=== PATIENT | female | born 1995 | race Caucasian/White ===

== ENCOUNTER 2018-01-09 15:20 | Emergency (ER) | payer OTHER, MEDICAID ==
[~2018-01-09] VITALS: Ht 175.3 cm; Wt 63.5 kg
[~2018-01-09 15:20] MED LIST: CLON1TAB PO
--- NOTE | 2018-01-09 15:31 | NUR ---
BIBLAPD FOR OTB, PER REPORT PT VEBRALIZED SI LAST NIGHT, NO SI/HI AT THIS TIME. PATIENT IS AAO4. AFEBRILE. VSS
[2018-01-09 15:51] VITALS: BP 132/78
--- NOTE | 2018-01-09 15:52 | NUR ---
Patient discharged to home in stable condition. Written and verbal after care instructions given. Patient verbalizes understanding of instruction.
== END 2018-01-09 15:52 | disposition home or self-care (01) ==
LOC: ER 15:22
DX: F32.9 Major depressive disorder, single episode, unspecified (principal); F41.9 Anxiety disorder, unspecified
CPT/HCPCS: 99284; A4606; Z7610